=== PATIENT | female | born 1970 | race Caucasian/White ===

== ENCOUNTER → 2021-02-16 | Outpatient (CLI) | payer MEDICARE, OTHER ==
--- NOTE | 2021-02-17 08:22 | MM ---
Reason for exam: clinical finding. Last mammogram was performed 3 years ago. History: Patient is nulliparous. Took hormonal contraceptives for 6 months. Physical Findings: Nurse Summary: entire right and left breast thickening, hardened, firm greater in the right breast, scabbed areas around right areola, patient states x 1 year (nurse TM). MG 3D Diag Mammo W/Cad RODERICK Bilateral CC and MLO view(s) were taken. Prior study comparison: February 13, 2018, mammogram, performed at [facility]. October 11, 2010, mammogram, performed at [facility]. Right diffuse pleomorphic calcifications. Right breast with skin thickening and distortion. Left pleomorphic calcifications upper outer quadrant. Left breast skin thickening. Findings are consistent with bilateral malignancy. These results were verbally communicated with the patient and result sheet given to the patient on 02/16/21. ASSESSMENT: Highly suggestive of malignancy, BI-RAD 5 RECOMMENDATION: Surgical consultation, stereotactic core biopsy, and localization and excision of both breasts. Manage patient on a clinical basis. Called Dr. Molina's office with mammographic findings and has scheduled an appointment for the patient for 02/17/21 at 4:[address] Hogan. PRELIMINARY REPORT CALLED AND FAXED TO DR. HOGAN ON 02/17/21.
== END | disposition home or self-care (01) ==
LOC: RADMAMWWP 14:52
PROVIDERS: ATTEND Family Medicine
DX: R92.1 Mammographic calcification found on diagnostic imaging of breast (principal)
CPT/HCPCS: 77066; G0279; 77062

== ENCOUNTER → 2021-02-17 | Outpatient (CLI) | payer MEDICARE, OTHER ==
[2021-02-17 16:42] VITALS: BP 122/84; PULSE 84; RESP 18; TEMP 97.9
--- NOTE | 2021-02-17 16:49 | P.GSHP ---
History of Present Illness H&P Date: 02/17/21 Chief Complaint: abnormal bilateral mammograms Elizabeth is a 50 year old white female seen in consultation for Dr. Molina regarding bilateral abnormal mammogram. She had bilateral mammogram performed on 10190531. This revealed bilateral pleomorphic calcifications for which biopsy is recommended. She states she feels heavyness in her breast. She does not feel any pain or masses she is concerned about. [facility] prior to this [facility] They recommended a 3D image at [facility], but it was not done. She had never had any breast biopsies in the past. She has no history of any recent trauma or infection in her breast. The patient has muscular dystrophy and is wheelchair dependent. She is able to get up in transfer but is not unable to walk. CAffiene: 20 ounces per day Nicotine: Negative Chocolate: Several times a week Family history: materanl aunt: lymph nodes in her left groin Hormonal History: menarche: 12 G0 BCP: 1 year as a teen to regulate periods menopause: starting, LMP November 2020 hormones: none Surgical History: bilateral cataract surgery nerve biopsy right ankle Medical History: Muscular dystrophy Dx. at 25 epilepsy seizures/ last one April 2020 Social History: nicotine: none alcohol:none drugs: none - Constitutional Constitutional: Denies chills, Denies fever - EENT Eyes: bilateral as per HPI Ears: bilateral: tinnitus Ears, nose, mouth and throat: Denies headache, Denies sore throat - Breasts Breasts: bilateral: as per HPI - Cardiovascular Cardiovascular: Denies chest pain, Denies shortness of breath - Respiratory Respiratory: Denies cough, Denies 7 - Gastrointestinal Gastrointestinal: Denies abdominal pain, Denies diarrhea, Denies nausea, Denies vomiting - Genitourinary (Female) Genitourinary: Denies dysuria, Denies hematuria - Menstruation Menstruation: Reports cycle variable - Musculoskeletal Musculoskeletal: Reports as per HPI - Integumentary Comment: atopic dermatitis Integumentary: Denies pruritus, Denies rash - Neurological Neurological: Reports as per HPI - Psychiatric Psychiatric: Denies anxiety, Denies depression - Endocrine Endocrine: Reports weight change, Denies fatigue - Hematologic/Lymphatic Comment: none - Allergic/Immunologic Allergic/Immunologic: Reports as per HPI Medications and Allergies Home Medications Medication Instructions Recorded Confirmed Type Cholecalciferol (Vitamin D3) 125 mcg PO DAILY 10/21/21 10/21/21 History [Vitamin D3 (125 MCG = 5,000 IU)] Ferrous Sulfate [Feosol] 325 mg PO DAILY 02/17/21 02/17/21 History Furosemide [Lasix] 20 mg PO DAILY 02/17/21 02/17/21 History Ibuprofen [Motrin] 800 mg PO Q8H 02/17/21 02/17/21 History levETIRAcetam [Keppra] 250 mg PO DAILY 02/17/21 02/17/21 History polyethylene glycoL 3350 [Miralax] 17 gm PO DAILY 02/17/21 02/17/21 History Allergies Allergy/AdvReac Type Severity Reaction Status Date / Time carbamazepine [From Tegretol] AdvReac Rash/Hives Unverified 02/17/21 16:38 Surgical - Exam - General no distress - ENT no hearing loss - Neck trachea midline - Respiratory normal expansion - Cardiovascular Rhythm: regular Heart Sounds: normal: S1, S2 - Abdomen Abdomen: soft - Integumentary bilateral ankle edema - Musculoskeletal wheel chair dependant - Psychiatric oriented to time, oriented to person, oriented to place, speech is normal, memory intact Breast Exam: Patient is examined while sitting in her wheelchair; this causes exam to be limited BRA: 44D inspection: Right nipple is inverted, thickening of the skin near the nipple areolar complex Palpation: Right breast: Multi-positional exam thickening of the breast tissue posterior to the nipple areolar complex and extending up into the 12:00 and upper outer quadrant of the breast Right axilla: No adenopathy of concern Left breast: No discrete dominant masses or nodules of concern appreciated Left axilla: No adenopathy of concern Results Mammogram reviewed with Dr. Alexandra Assessment and Plan Assessment: Impression: 1. Bilateral pleomorphic calcifications with nodularity noted; recommendation was for bilateral stereotactic core biopsy localization and excision of the areas of concern After review of the radiographs I would recommend bilateral ultrasound for possible ultrasound-guided core biopsy Plan: 1. Bilateral breast ultrasound 2. Bilateral breast biopsy possible ultrasound 3. Follow-up after core biopsy The risk and benefits of the procedure have been discussed with the patient and her mother. Risks include but are not limited to bleeding, infection, reaction to the anesthetic. If the results were to be discordant and further biopsy may be recommended. Cc: Dr. Schulte
== END ==
LOC: WWCWWP 16:11
PROVIDERS: ATTEND Surgery
DX: R92.1 Mammographic calcification found on diagnostic imaging of breast (principal); N63.10 Unspecified lump in the right breast, unspecified quadrant; N63.20 Unspecified lump in the left breast, unspecified quadrant

== ENCOUNTER → 2021-02-28 | Day surgery (SDC) | payer MEDICARE, OTHER ==
[2021-02-28 12:05] VITALS: RESP 16
--- NOTE | 2021-02-28 12:23 | USB ---
Reason for exam: clinical finding. History: Patient is nulliparous. Took hormonal contraceptives for 6 months. US Breast BILAT Right complete breast ultrasound includes all four quadrants, the retroareolar region and axilla. Finding demonstrates a 10 x 5 x 11cm irregular, solid, hypoechoic, vascular lesion at 9-12 o'clock. Left complete breast ultrasound includes all four quadrants, the retroareolar region and axilla. Finding demonstrates a 1.6 x 0.9 x 1.2cm oval, cystic lesion at 12 o'clock, a 2.9 x 2.8 x 2.7cm irregular, solid, hypoechoic, vascular lesion at 1 o'clock and a 1.7 x 0.9 x 1.4cm oval, cystic lesion at 2 o'clock. These results were verbally communicated with the patient and result sheet given to the patient on 02/28/21. ASSESSMENT: Highly suggestive of malignancy, BI-RAD 5 RECOMMENDATION: Ultrasound core biopsy of both breasts.
[2021-02-28 14:35] VITALS: BP 112/68; PULSE 71; TEMP 98
--- NOTE | 2021-02-28 14:46 | USB ---
EXAMINATION TYPE: US biopsy breast VAD RT, MG diagnostic mammo BI wo CAD DATE OF EXAM: 02/28/2021 CLINICAL HISTORY: R92.8 ABNORMAL MAMMOGRAM. TECHNIQUE: Ultrasound guided core biopsy of bilateral breast. COMPARISON: Breast ultrasound 02/28/2021 FINDINGS: The procedure of ultrasound guided core biopsy was explained to the patient. Benefits, alt ernatives, and risks were discussed. An informed consent was then obtained. The patient remained in her chair for imaging and for the procedure. The overlying skin of the right breast upper outer quadrant mass was prepped and draped in usual sterile fashion. Lidocaine was used as anesthetic into the skin and subcutaneous tissue up to area of concern in the right breast. Under ultrasound guidance, a 12-gauge vacuum assisted biopsy gun device was used to obtain 2 core toribio ples. Following this, a biopsy clip was left in lesion. Using similar technique the breast mass in the upper outer left breast was sampled. Single core biops y obtained with a 12-gauge needle following sterile prep and drape, lidocaine for local anesthesia. C lip was deployed using ultrasound guidance to zaid the position of the biopsy. Core specimens were oneil bmitted to pathology. Bilateral single cc views of the breasts were obtained, digital subtraction mammogram this finding cl ips at the site of biopsy overlying patient's abnormalities within the mammograms. The patient tolerated the procedure well without any immediate complication. The patient was kept in the radiology department for short stay after the procedure and then discharged home in stable condi tion. IMPRESSION: Successful, uncomplicated ultrasound guided core biopsy of bilateral breast masses full p athology results to follow.
--- NOTE | 2021-02-28 14:48 | USB ---
EXAMINATION TYPE: US biopsy breast VAD LT DATE OF EXAM: 02/28/2021 CLINICAL HISTORY: R92.8 Abnormal mammogram. TECHNIQUE: Ultrasound guided core biopsy of breast. COMPARISON: NONE FINDINGS: The procedure of ultrasound guided core biopsy was explained to the patient. Benefits, alt ernatives, and risks were discussed. An informed consent was then obtained. See dictated report of ultrasound core biopsy right breast same date.
== END ==
LOC: RADUSWWP 10:59 → EDSTATUS 11:00
PROVIDERS: ATTEND Surgery
DX: C50.911 Malignant neoplasm of unspecified site of right female breast (principal); C50.912 Malignant neoplasm of unspecified site of left female breast; Z17.0 Estrogen receptor positive status [ER+]; Z88.8 Allergy status to other drugs, medicaments and biological substances
CPT/HCPCS: 88305; 88342; 88341; 77066; 19083 ×2; 76641; A4648; J2001

== ENCOUNTER → 2021-03-11 | Outpatient (CLI) | payer MEDICARE, OTHER ==
[2021-03-11 16:08] VITALS: BP 118/78; PULSE 78; RESP 16; TEMP 98.5
--- NOTE | 2021-03-11 16:37 | P.PN ---
Subjective Progress Note Date: 03/11/21 Elizabeth is a 50 year old white female seen in consultation for Dr. Molina regarding bilateral abnormal mammogram. She had bilateral mammogram performed on 10190531. This revealed bilateral pleomorphic calcifications for which biopsy was recommended. She states she feels heavyness in her breast. She did not feel any pain or masses she was concerned about. Her last mammogram prior to this was prior to [facility]. They recommended a 3D image at [facility], but it was not done. She had never had any breast biopsies in the past. She has no history of any recent trauma or infection in her breast. The patient has muscular dystrophy and is wheelchair dependent. She is able to get up in transfer but is not unable to walk. She underwent a bilateral ultrasound-guided core biopsy on . 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 Left breast ultrasound core biopsy revealed invasive ductal carcinoma grade 1. The tumors were ER positive [place] positive HER-2/karen negative rate 1 The patient tolerated the biopsies without difficulty. Biopsy sites clean and dry The right breast cancer is staged as IIIB, the left breast cancer is staged as 1B. Right breast cancer T4 N0 M0 G1 HER-2 negative ER positive. Positive Left breast cancer T2 N0 M0 21 HER-2 negative ER positive. Positive At this time the patient will have evaluation from medical oncology prior to any surgical treatment. We recommend metastatic workup first either by PET/CT or computed tomography scan chest abdomen and pelvis and bone scan Presentation of case at tumor board Primary medical oncology Appointment Rebeka with social work Genetic testing Follow-up care in 4 weeks CC: Dr. Zaria Hill Objective - Vital Signs Vital signs: Vital Signs Temp 98.5 F 03/11/21 16:02 Pulse 78 03/11/21 16:02 Resp 16 03/11/21 16:02 BP 118/78 03/11/21 16:02 Pulse Ox Intake & Output 03/10/21 03/11/21 03/11/21 18:59 06:59 18:59 Weight 104.326 kg
== END ==
LOC: WWCWWP 15:55
PROVIDERS: ATTEND Surgery
DX: C50.912 Malignant neoplasm of unspecified site of left female breast (principal); C50.911 Malignant neoplasm of unspecified site of right female breast; Z88.8 Allergy status to other drugs, medicaments and biological substances

== ENCOUNTER → 2021-03-25 | Outpatient (CLI) | payer MEDICARE, OTHER ==
--- NOTE | 2021-03-26 22:49 | PE ---
EXAMINATION TYPE: PET CT fusion skull to thigh DATE OF EXAM: 03/25/2021 COMPARISON: Bilateral breast ultrasound February 28, 2021 and outside mammogram February 16, 2021 HISTORY: Bilateral breast invades ductal carcinoma on biopsy February 28, 2021. TECHNIQUE: Following the intravenous administration of 13.12 mCi of F-18 FDG, whole body images are performed from the skull base to the midthigh. Images are reviewed on the computer in the coronal, a xial, and sagittal planes. Reconstructed rotating images are created on independent workstation and reviewed on the computer. A localization and attenuation correction CT is performed in conjunction with the PET scan. Blood glucose level equals 92 SCAN: Initial Scan FINDINGS: SKULL BASE AND NECK: No suspicious abnormal hypermetabolic uptake. CHEST, MEDIASTINUM, AND HILAR REGION: Corresponding to ultrasound there is heterogeneous tissue with multifocal areas of hypermetabolic masses over at least 8 cm length distribution. Biopsy clip noted a xial image 101. Max SUV is 11.09. There is abnormal skin thickening with mild hypermetabolic uptake c orresponding to mammogram. No abnormal right axillary adenopathy. There is heterogeneously dense tissue in the left breast with abnormal hypermetabolic uptake along th e lateral aspect over roughly 5-6 cm length axial images 120 through 135. Left breast is not entirely included in the [id number]. Max SUV is 8.32. Biopsy clip anteriorly axial image 129 noted. There are slightly prominent but subcentimeter left axillary lymph nodes, roughly 4 lymph nodes are seen wi th abnormal hypermetabolic uptake, max SUV is 5.77 on axial image 84. There are scattered suspicious pulmonary nodules. For reference there is 9 mm pulmonary nodule in the right middle lobe axial image 99. Mild hypermetabolic uptake, max SUV is 3.41. Approximately 10-15 s cattered small subcentimeter nodules are present. ABDOMEN AND PELVIS: Normal excretion is seen. Mild nonspecific bowel uptake particularly at level of sigmoid colon. There is anteverted uterus projecting to right of midline. Central hypermetabolic upta ke could reflect product of normal menses however if patient is postmenopausal further investigation of the endometrium would be advised. No additional areas of abnormal hypermetabolic uptake. OSSEOUS STRUCTURES: Subtle hypermetabolic lucent lesion posterior osseous glenoid right shoulder axia l image 58, max SUV is 5.89. Additional tiny hypermetabolic focus left upper cervical spine axial lizeth ge 42. OTHER CT: Facet arthropathy in the lower lumbar spine. Scattered bilateral pelvic phleboliths. IMPRESSION: Confirmation of known bilateral breast malignancy. Larger and dermal involvement in the r ight breast is present. There is abnormal left axillary adenopathy. There is hematogenous pulmonary m etastatic disease noted. Cannot exclude early osseous metastatic disease. Attention to uterus as deta iled above.
== END | disposition home or self-care (01) ==
LOC: RADPETMAIN 17:59
PROVIDERS: ATTEND Surgery
DX: C50.811 Malignant neoplasm of overlapping sites of right female breast (principal); C50.812 Malignant neoplasm of overlapping sites of left female breast
CPT/HCPCS: 78815; A9552

== ENCOUNTER → 2021-09-30 | Outpatient (CLI) | payer MEDICARE, OTHER ==
--- NOTE | 2021-10-04 20:30 | PE ---
EXAMINATION TYPE: PET CT fusion skull to thigh DATE OF EXAM: 09/30/2021 CLINICAL HISTORY: 51-year-old female C50.111 with restaging for left breast cancer. Patient with chem otherapy. Diagnosed February 2021. TECHNIQUE: Following the intravenous administration of 11.53 mCi of F-18 FDG, whole body images are performed from the skull base to the midthigh. Images are reviewed on the computer in the coronal, axial, and sagittal planes. Reconstructed rotating images are created on independent workstation and reviewed on the computer. A localization and attenuation correction CT is performed in conjunction with the PET scan. Glucose level: 99 mg/dL Injection site: Right wrist COMPARISON: 03/25/2021 FINDINGS: PET: Numerous scattered small foci of increased uptake within the neck, base of the neck, supraclavicular regions, axilla, and superior mediastinum. Many of these areas of increased uptake correspond to fat density on CT suggesting brown fat (max SUV 5.5). Other foci localized to muscles and tendons, for ex ample, the bilateral subscapularis (max SUV 6.2). No suspicious mass or enlarging lymphadenopathy to account for these PET findings. There is interval improvement but with some residual skin thickening of the right breast (max SUV 2.9 ). Less bulky configuration to the bilateral breast tissue and decreased uptake, now only mild uptake (M ax SUV 2.6 on the right and 2.1 on the left). Foci of increased uptake which previously localized to small left axillary lymph nodes has resolved. A few punctate pulmonary nodules remain, improved from 03/25/2021. For example, the anterior right mi dlung nodule currently measures 5 mm versus 9 mm, previously and no longer shows any focal uptake. Th e previous 7 mm anterior left midlung nodule only shows a tiny groundglass focus now and no uptake. F indings compatible with satisfactory metabolic response. Average liver SUV 2.9. Variable mild to moderate colon uptake likely physiologic. Uptake at the right wrist likely at the injection site. Otherwise, physiologic FDG uptake within the abdomen and pelvis. Scattered foci of sclerosis within the thoracic and lumbar spine as well as the posterior right third rib are similar to slightly increased. These either continue to show no hypermetabolism or the previ ous mild hypermetabolism has resolved. ATTENUATION CORRECTION CT: Paranasal sinuses and mastoid air cells appear clear. No cervical lymphadenopathy. Orotracheal, is cl ear. Punctate calcifications bilateral palatine tonsils suggesting sequela of prior infection. Heart is normal in size. Aorta normal caliber with a bovine configuration to the aortic arch and noel tional direct takeoff of the left vertebral artery directly from the aortic arch. No thoracic lymphad enopathy. COPD with mild emphysema. Mild dependent atelectasis. No dilated small bowel, free fluid, or free air. No mesenteric or retroperitoneal lymphadenopathy. Mi ld stool burden. Sigmoid diverticulosis. No pericolonic inflammatory change. No dilated small bowel, free fluid, or free air. Generalized muscle atrophy gluteal, upper thighs, and iliopsoas. Also, diffuse fatty atrophy of the p araspinal musculature. Bladder urine distended. Uterus and both ovaries are visualized. Small pelvic phleboliths. No abnorma l fluid collection in the pelvis with lymphadenopathy. Bones: Osteopenia. Degenerative changes at both glenohumeral joints at the shoulders. IMPRESSION: 1. Numerous small new foci of increased hypermetabolism along the base of the neck, axilla, and super ior mediastinum. Most of these foci correspond to areas of fat density suggesting the development of brown fat (benign). A couple foci correspond to muscle/tendon suggesting physiologic uptake (also austin ign). 2. Only minimal or mild residual uptake at both breasts compatible with treatment response. There has been complete metabolic response at the left axillary nodes and the scattered small pulmonary nodule s. Some residual tiny nodules remain on CT but they no longer show any uptake. 3. Scattered sclerotic foci within the thoracic and lumbar spine as well as the posterior right third rib either continue to show no uptake or resolution of previous mild uptake. There is also slight in crease in sclerosis at these areas and we suspect healing response at the sites of previous osseous m etastasis.
== END | disposition home or self-care (01) ==
LOC: RADPETMAIN 13:13
PROVIDERS: ATTEND Internal Medicine Hematology & Oncology
DX: C50.111 Malignant neoplasm of central portion of right female breast (principal)
CPT/HCPCS: 78815; A9552

== ENCOUNTER → 2021-10-21 | Outpatient (CLI) | payer MEDICARE, OTHER ==
[2021-10-21 16:34] VITALS: BP 128/80; PULSE 80; RESP 16; TEMP 98.4
--- NOTE | 2021-10-21 17:08 | P.PN ---
Subjective Progress Note Date: 10/21/21 Principal diagnosis: bilateral breast cancer Elizabeth is a 50 year old white female seen in consultation for Dr. Molina regarding bilateral abnormal mammogram. She had bilateral mammogram performed on [id number]. This revealed bilateral pleomorphic calcifications for which biopsy is recommended. She states she feels heavyness in her breast. She does not feel any pain or masses she is concerned about. [facility] to this [facility] They recommended a 3D image at [facility], but it was not done. She had never had any breast biopsies in the past. She has no history of any recent trauma or infection in her breast. The patient has muscular dystrophy and is wheelchair dependent. She is able to get up in transfer but is not unable to walk. 10-21-21 She had bilateral ultrasound-guided core biopsies of the breast. Right breast core biopsy was done on which revealed invasive ductal carcinoma grade 1 with focal intermediate grade DCIS. Left breast core biopsy was done on the same date which also revealed invasive ductal carcinoma grade 1, ER/SD positive HER-2/karen negative. The patient underwent neoadjuvant treatment with a good response. She received Ibrance/Femora and Zoladex. She has been off the Ibrance for two weeks. The patient had a PET scan performed and 6321. This revealed only minimal or mild residual uptake at both breasts compatible with treatment response. There didn't some complete metabolic was passed at the left axillary nodes and scattered small pulmonary nodules. Some tiny nodules remain on the CT but no longer showed any uptake. Scattered sclerotic foci within the thoracic and lumbar spine as well as the posterior right third rib continue to show no uptake resolution of previous mild uptake. There was also slight increase in sclerosis at these areas suspecting healing as sites of possible previous metastases. Numerous smaller foci of increased hypermetabolism along the base of the neck axilla and superior mediastinum. Most of these foci corresponded to areas of fat density suggesting the development of benign brown fat. At this time the patient is ready to have both breast removed and SNB. CAffiene: 20 ounces per day Nicotine: Negative Chocolate: Several times a week Family history: materanl aunt: lymph nodes in her left groin Hormonal History: menarche: 12 G0 BCP: 1 year as a teen to regulate periods menopause: starting, LMP November 2020 hormones: none Surgical History: bilateral cataract surgery nerve biopsy right ankle Medical History: Muscular dystrophy Dx. at 25 epilepsy seizures/ last one April 2020 Social History: nicotine: none alcohol:none drugs: none - Constitutional Constitutional: Denies chills, Denies fever - EENT Eyes: bilateral as per HPI Ears: bilateral: tinnitus Ears, nose, mouth and throat: Denies headache, Denies sore throat - Breasts Breasts: bilateral: as per HPI - Cardiovascular Cardiovascular: Denies chest pain, Denies shortness of breath - Respiratory Respiratory: Denies cough - Gastrointestinal Gastrointestinal: Denies abdominal pain, Denies diarrhea, Denies nausea, Denies vomiting - Genitourinary (Female) Genitourinary: Denies dysuria, Denies hematuria - Menstruation Menstruation: Reports cycle variable - Musculoskeletal Musculoskeletal: Reports as per HPI - Integumentary Comment: atopic dermatitis Integumentary: Denies pruritus, Denies rash - Neurological Neurological: Reports as per HPI - Psychiatric Psychiatric: Denies anxiety, Denies depression - Endocrine Endocrine: Reports weight change, Denies fatigue - Hematologic/Lymphatic Comment: none - Allergic/Immunologic Allergic/Immunologic: Reports as per HPI Objective - Vital Signs Vital signs: Vital Signs Temp 98.4 F 10/21/21 16:31 Pulse 80 10/21/21 16:31 Resp 16 10/21/21 16:31 BP 128/80 10/21/21 16:31 Pulse Ox 98 10/21/21 16:31 FiO2 Intake & Output 10/20/21 10/21/21 10/21/21 18:59 06:59 18:59 Weight 102.058 kg - Exam BMI: 35.2 - Constitutional General appearance: Present: cooperative - EENT Eyes: Present: EOMI ENT: Present: hearing grossly normal - Neck Neck: Present: normal ROM - Respiratory Respiratory: bilateral: CTA - Cardiovascular Heart sounds: normal: S1, S2 - Gastrointestinal General gastrointestinal: Present: soft - Musculoskeletal Musculoskeletal Comment(s): uses wheel chair; muscular dystrophy - Psychiatric Psychiatric: Present: A&O x's 3, appropriate affect, intact judgment & insight - Additional findings Additional findings: Breast Exam: BRA: does not wear one/ 40C/D inspection: Nipple retraction on the right, bilateral grade 3 ptosis Palpation: Right breast: Fullness behind the right nipple areolar complex, no other discrete masses Right axilla: No adenopathy of concern Left breast: No dominant masses or nodules of concern Left axilla: No adenopathy of concern Assessment and Plan Assessment: Impression: Bilateral breast cancer with good response withIbrance, Femora, Zolodex Muscular dystrophy Epilepsy Plan: Medical clearance from Dr. Parks Bilateral mastectomy with bilateral sentinel node biopsy clearance from Dr. Dueñas; neurology We have discussed reconstruction at this time the patient is declining. Cc: Dr. Enciso
== END ==
LOC: WWCWWP 16:18
PROVIDERS: ATTEND Surgery
DX: C50.911 Malignant neoplasm of unspecified site of right female breast (principal); C50.912 Malignant neoplasm of unspecified site of left female breast; G71.00 Muscular dystrophy, unspecified; G40.909 Epilepsy, unspecified, not intractable, without status epilepticus; Z17.0 Estrogen receptor positive status [ER+]; Z88.8 Allergy status to other drugs, medicaments and biological substances

== ENCOUNTER 2021-12-27 07:18 | Day surgery (SDC) | payer MEDICARE, OTHER ==
[2021-12-26 12:41] VITALS: BMI 35.2
[~2021-12-27 07:18] MED LIST: DEXAMETHASONE SOD PHOSPHATE 4 MG/ML 1 ML VIAL IV ONE; HEPARIN SODIUM,PORCINE/PF 5,000 UNIT/0.5 ML SYRINGE SQ PRN; HYDROmorphone 0.5 MG/0.5 ML SYRINGE IVP PRN; MIDAZOLAM 2 MG/2 ML VIAL IV PRN; ONDANSETRON 4 MG/2 ML VIAL IVP ONE; Pre Op ABX Message 1 EACH MISC MISCELLANE ONE; SCOPOLAMINE 1 MG/72 HR PATCH TRANSDERM ONE
[2021-12-27] MEDS: LACTATED RINGERS 1,000 ML IV SCH ×2 (07:40→23:36)
[2021-12-27 08:15] LABS: Basophils # (A) 0.1 k/uL (0-0.2); Basophils % (A) 2 %; Eosinophils # (A) 0.1 k/uL (0-0.7); Eosinophils % (A) 2 %; HCT 37.4 % (34.0-46.0); HGB 12.5 gm/dL (11.4-16.0); Lymphocytes # (A) 1.5 k/uL (1.0-4.8); Lymphocytes % (A) 32 %; MCH 35.9 pg (25.0-35.0); MCHC 33.4 g/dL (31.0-37.0); MCV 107.3 fL (80.0-100.0); Macrocytosis Marked; Mean Platelet Volume 7.2; Monocytes # (A) 0.2 k/uL (0-1.0); Monocytes % (A) 4 %; Neutrophils # (A) 2.6 k/uL (1.3-7.7); Neutrophils % (A) 57 %; Platelet Count 323 k/uL (150-450); RBC 3.48 m/uL (3.80-5.40); RDW 15.6 % (11.5-15.5); WBC 4.7 k/uL (3.8-10.6)
--- NOTE | 2021-12-27 08:23 | P.PN ---
Progress Note - Text Progress Note Date: 12/27/21 Case was discussed with Dr. Cruz. The patient has been [place] [address] was 3.4. He did not feel that this should prevent us from proceeding with the operative procedure.
[2021-12-27] MEDS ORDERED: MIDAZOLAM 2 MG/2 ML VIAL IVP ONE (08:32)
--- NOTE | 2021-12-27 08:32 | P.NAPBC ---
NAPBC Queries - NAPBC Queries Was patient's case review presented at [facility] tumor board? If no, comment.: Yes Was patient's pathology reviewed at [facility]? If no, comment.: Yes Was breast conservation surgery offered? If no, comment.: No Was sentinel node biopsy offered? If no, comment.: Yes Was diagnosis confirmed by percutaneous core biopsy? If no, comment.: Yes Is patient mastectomy patient?: Yes Was a preop referral to reconstructive surgeon offered?: No Clinical Stage: PET February 2021 initial mets, resolved with treatment on repeat PET scan 2021 Femora/Ibrance/zolvadex Stage 4 disease; patient with muscular dystrophy and after representation at tumor board recommended for bilateral mastectomy and SNB secondary for local control and secondary to excellant response of neoadjuvant therapy noted on PET scan.
[2021-12-27] MEDS ORDERED: HYDROmorphone (PF) 1 MG/ML ONE (08:43)
[2021-12-27] MEDS ORDERED: PROPOFOL 10 MG/ML 20 ML VIAL IV ONE (08:43)
[2021-12-27] MEDS ORDERED: LIDOCAINE 4% LTA KIT (4 ML) TOPICAL ONE (08:43)
[2021-12-27] MEDS ORDERED: fentaNYL (PF) 50 MCG/ML 2 ML AMP ONE (08:43)
[2021-12-27] MEDS ORDERED: LIDOCAINE 2% INJ 20 MG/ML (2 ML VIAL) ONE (08:43)
[2021-12-27] MEDS ORDERED: ePHEDrine 50 MG/ML 1 ML VIAL ONE (08:43)
[2021-12-27] MEDS ORDERED: SODIUM CHLORIDE 0.9% 50 ML with ceFAZolin 2,000 MG IV ONE ×2 (08:48)
--- NOTE | 2021-12-27 09:01 | NM ---
EXAMINATION TYPE: NM sentinel node injection DATE OF EXAM: 12/27/2021 COMPARISON: No direct comparisons. HISTORY: Left breast cancer. TECHNIQUE AND FINDINGS: The procedure of sentinel lymph node injection was explained to the patient. The benefits, alternatives, and risks were discussed. An informed consent was then obtained. Overlying skin is cleaned with sterile alcohol. Following this, 481 RT Breast & 465 LT Breast uCi Tc 99m Tilmanocept was injected in the upper outer aspect of both nipples intradermally. The patient tolerated the procedure well without any immediate complication. The patient was kept in the radiology department for short stay after the procedure and then taken to surgery for surgical p rocedure what is presumed intraoperative gamma probe will be used for sentinel lymph node detection. IMPRESSION: Bilateral breast radiotracer injection for sentinel node localization as above.
[2021-12-27] MEDS ORDERED: METHYLENE BLUE 10 MG/ML (10 ML VIAL) INJ ONE (09:09)
[2021-12-27] MEDS ORDERED: LACTATED RINGERS 1,000 ML IV ONE (11:00)
[2021-12-27] MEDS ORDERED: ONDANSETRON 4 MG/2 ML VIAL IVP PRN (12:37)
[2021-12-27] MEDS ORDERED: NALOXONE 0.4 MG/ML 1 ML VIAL IV PRN (12:37)
[2021-12-27] MEDS ORDERED: HYDROmorphone 1 MG/ML 1 ML SYRINGE IVP PRN (12:37)
[2021-12-27] MEDS ORDERED: HYDROcodone/APAP 5-325MG 1 EACH TAB PO PRN (12:37)
--- NOTE | 2021-12-27 12:37 | P.OP ---
Date of Procedure: 12/27/21 Preoperative Diagnosis: Bilateral invasive ductal breast cancer, status post neoadjuvant Femara/Ibrance/Zolvadex Postoperative Diagnosis: Same Procedure(s) Performed: Bilateral mastectomy, left sentinel node biopsy, right axillary mapping, attempted right sentinel node biopsy, removal of axillary tissue Anesthesia: WALLACE Surgeon: Paola Hogan Estimated Blood Loss (ml): 50 IV fluids (ml): 800 Pathology: other (Bilateral breast, left axillary lymph node, right axillary tissue) Condition: stable Disposition: floor Indications for Procedure: Bilateral invasive ductal breast cancer Operative Findings: Very dense breasts, both axilla fibrotic Description of Procedure: The patient is a 51-year-old white female with muscular dystrophy who was seen in the preoperative area and bilateral periareolar injections of radioactive substance were performed by radiology. She was then brought to the operative suite. Following induction of anesthesia using the neoprobe radioactivity was noted to have traveled to the left axilla but not the right axilla. Therefore diluted methylene blue was injected in the periareolar regon on the right. Approximately 3 mL were injected. The breast was massaged for 3 minutes. Both breasts and axilla were then prepped and draped in a sterile fashion. The left breast was approached initially. Superior and inferior skin flaps were developed. The skin was thickened and the tissue was very fibrotic. Dissection was carried down to the chest wall and the breast was taken from medial to lateral off the pectoralis muscle being careful to maintain hemostasis using the electrocautery device as well as the Harmonic scalpel. At the level of the axilla the breast was resected. Using the neoprobe an area of radioactivity was identified and a lymph node was removed. The 10 second count was 1043. The background 10 second count was 20. The tissues in the axilla were fibrotic but no other axillary tissue of concern was palpated. Following this the wound was well irrigated. 2 ALEXIS drains were placed. After we were assured that hemostasis was attained Surgicel in powder form was placed. The deep tissues were closed using 3-0 Vicryl suture. The skin was closed using 4-0 Monocryl. The drains were secured using nylon suture. The area of the right breast was approached. Superior and inferior skin flaps were developed. The skin was thickened and the breast tissue was very fibrotic. Dissection was then carried from medial to lateral off the chest wall. Several perforating vessels were identified and these were suture ligated. Hemostasis was attained using electrocautery as well as the Harmonic scalpel. The breast was dissected to the axillary area and was removed. Interrogation of the axilla did not reveal any radioactivity. The axillary tissue was very fibrotic and there were no blue lymph nodes. Lower axillary tissue was removed. No definite lymph node could be palpated. After we were assured that hemostasis was attained 2 ALEXIS drains were placed. These were secured using nylon suture. Surgicel in powder form was placed. The deep tissues were closed using 3-0 Vicryl suture. This was followed by closure of the skin with 4-0 Monocryl. Steri-Strips were applied to each side. The patient tolerated the procedure in stable condition. All instrument and sponge counts were correct at the end of the case.
[2021-12-27 13:24] VITALS: RESP 16
[2021-12-27] MEDS: HEPARIN SODIUM,PORCINE/PF 5,000 UNIT/0.5 ML SYRINGE SQ SCH ×2 (19:14→23:54)
[2021-12-27] MEDS: DEXTROSE 5%-0.45% NACL 1,000 ML IV SCH ×2 (19:14→20:10)
--- NOTE | 2021-12-27 23:12 | P.CONS ---
History of Present Illness - Reason for Consult Consult date: 12/27/21 - History of Present Illness The patient is a 51-year-old female with a PMH of muscular dystroph, seizure disorder, and invasive bilateral ductal breast cancer who was admitted for planned bilateral mastectomy. The patient underwent the procedure earlier today and was seen postoperatively. She reported good control her pain at the time of interview, rated at a 2 out of 10 at rest. Denied experiencing short of breath, nausea, vomiting, abdominal pain, diarrhea. The patient did request a dose of MiraLAX which she states she takes daily but that she missed her dose from yesterday. Review of systems: Pertinent positives and negatives as discussed in HPI, a complete review of systems was performed and all other systems are negative. Physical examination: General: non toxic, no distress, appears at stated age, obese Derm: no unusual rashes/lesions, warm Head: atraumatic, normocephalic, symmetric Eyes: EOMI, no lid lag, anicteric sclera, pupils equal round reactive to light ENT: Nose and ears atraumatic Neck: No cervical lymphadenopathy, trachea midline, supple Mouth: no lip lesion, mucus membranes moist Cardiovascular: S1S2 reg, no murmur, positive dorsalis pedis pulse bilateral, no edema Lungs: CTA bilateral, no rhonchi, no rales, no accessory muscle use Abdominal: soft, nontender to palpation, no guarding Ext: muscle strength 3 out of 5 in all 4 extremities grossly, no gross muscle atrophy, no contractures, Neuro: CN II-XI grossly intact, no gross focal neuro deficits Psych: Alert, oriented, appropriate affect Assessment/plan Chronic conditions: Seizure disorder, muscular dystrophy -Continue with home medications -Patient requested to see a physical therapist as she is concerned about her muscular dystrophy. Patient reports at baseline she is only able to stand, which has been a gradual slight decline in her overall functional status. -Patient also requested to see the geriatric social work professor and case management social worker to help her procure more assistance at home for her ADLs -Patient also requested to see a past Status post bilateral mastectomy -Defer management including pain control and DVT prophylaxis to the primary surgery service We appreciate this opportunity to be involved in this patient's care. We will follow the patient with you. For any further questions, please not hesitate to contact the sound inpatient team. Past Medical History Past Medical History: Asthma, Cancer, GERD/Reflux, Musculoskeletal Disorder Additional Past Medical History / Comment(s): muscular dystrophy- weakness in arms and legs-uses power chair and julissa lift., luis daniel breast cancer with chemo (last chemo 2-3 weeks ago.) History of Any Multi-Drug Resistant Organisms: MRSA Year Discovered:: ?2013 MDRO Source:: leg Past Surgical History: Breast Surgery, Orthopedic Surgery Additional Past Surgical History / Comment(s): bilateral cataracts w/lens implants at 18yrs old., right ankle nerve biospy, Breast bx. muscle nerve biopsy, bilat mastectomy 12/27/2021 for breast cancer. stage 4 breast cancer right breast and stage one breast cancer left breast. Past Anesthesia/Blood Transfusion Reactions: No Reported Reaction, Motion Sickness Past Psychological History: No Psychological Hx Reported Smoking Status: Never smoker, Second hand smoke exposure Past Alcohol Use History: Rare Past Drug Use History: None Reported Medications and Allergies Home Medications Medication Instructions Recorded Confirmed Type Furosemide [Lasix] 20 mg PO DAILY 02/17/21 12/27/21 History Ibuprofen [Motrin] 800 mg PO Q8H 02/17/21 12/27/21 History polyethylene glycoL 3350 [Miralax] 17 gm PO DIRECTED 02/17/21 12/27/21 History Omeprazole [PriLOSEC] 20 mg PO DAILY 10/21/21 12/27/21 History Cholecalciferol [Vitamin D3 (25 50 mcg PO DAILY 12/26/21 12/27/21 History Mcg = 1000 Iu)] Ferrous Sulfate [Iron] 325 mg PO DAILY 12/26/21 12/27/21 History levETIRAcetam [Keppra] 500 mg PO Q12HR 12/26/21 12/27/21 History Allergies Allergy/AdvReac Type Severity Reaction Status Date / Time carbamazepine [From Tegretol] AdvReac Rash/Hives Verified 12/27/21 07:27 pet dander Allergy Unknown asthma Uncoded 12/27/21 07:27 symptoms Physical Exam Vitals: Vital Signs Temp Pulse Pulse Resp BP BP Pulse Ox 12/27/21 20:00 97.7 F 77 16 132/86 100 12/27/21 17:00 72 16 134/74 100 12/27/21 16:00 94 16 149/72 100 12/27/21 15:30 81 16 144/73 100 08/30/22 15:00 81 16 138/71 100 12/27/21 14:45 70 16 136/67 100 12/27/21 14:30 86 16 130/60 99 12/27/21 14:15 85 16 129/65 99 12/27/21 14:00 80 16 134/72 99 12/27/21 13:45 74 16 133/66 100 12/27/21 13:30 82 16 133/61 92 L 12/27/21 13:15 73 16 136/65 100 12/27/21 12:59 97 F L 89 18 133/67 100 12/27/21 08:43 87 14 94 L 12/27/21 07:14 97.6 F 85 16 162/81 98 Intake and Output 12/27/21 12/27/21 12/28/21 14:59 22:59 06:59 Intake Total 1850 200 Output Total 650 180 Balance 1200 20 Intake: IV 1850 200 Output: Drainage 180 Bilateral Breast 180 Urine 600 Estimated Blood Loss 50 Other: Weight 102.2 kg 102.2 kg Results CBC & Chem 7: 12/27/21 07:57 Labs: Abnormal Lab Results - Last 24 Hours (Table) 12/27/21 Range/Units 07:57 RBC 3.48 L (3.80-5.40) m/uL MCV 107.3 H (80.0-100.0) fL MCH 35.9 H (25.0-35.0) pg RDW 15.6 H (11.5-15.5) % Macrocytosis Marked A
[2021-12-27] MEDS: levETIRAcetam 500 MG TAB PO SCH (23:54)
[2021-12-28] MEDS: DEXTROSE 5%-0.45% NACL 1,000 ML IV SCH (05:58)
[2021-12-28] MEDS: HEPARIN SODIUM,PORCINE/PF 5,000 UNIT/0.5 ML SYRINGE SQ SCH (08:57)
[2021-12-28] MEDS: levETIRAcetam 500 MG TAB PO SCH (08:57)
[2021-12-28] MEDS ORDERED: PANTOPRAZOLE 40 MG TABLET PO SCH (09:00)
[2021-12-28] MEDS ORDERED: ACETAMINOPHEN TAB 325 MG TAB PO PRN (09:14)
[2021-12-28 09:47] VITALS: BP 104/64; PULSE 70; TEMP 97.5
--- NOTE | 2021-12-28 10:10 | P.PN ---
Subjective Progress Note Date: 12/28/21 Principal diagnosis: Postop day #1 bilateral mastectomy with bilateral axillary tissue biopsy Elizabeth is a 51-year-old white female status post bilateral mastectomy and axillary tissue sampling. Of significance is the fact that she has muscular dystrophy and is unable to ambulate. Last night she had some urinary retention and a Hamlin catheter was placed. She is tolerating her diet without difficulty and has minimal discomfort. Objective - Vital Signs Vital signs: Vital Signs Temp 97.5 F L 12/28/21 08:00 Pulse 70 12/28/21 08:00 Resp 16 12/28/21 02:00 BP 104/64 12/28/21 08:00 Pulse Ox 98 12/28/21 08:00 FiO2 Intake & Output 12/27/21 12/28/21 12/28/21 18:59 06:59 18:59 Intake Total 0 Output Total 650 805 Balance 1400 -805 Weight 102.2 kg 102.2 kg Intake: IV 2049 Output: Drainage 255 Bilateral Breast 180 Left Lower Breast 5 Left Upper Breast 20 Right Lower Breast 0 Right Upper Breast 50 Urine 600 550 Uretheral (Hamlin) 550 Estimated Blood Loss 50 Other: Voiding Method Indwelling Catheter - Constitutional General appearance: Present: cooperative - EENT Eyes: Present: EOMI ENT: Present: hearing grossly normal - Respiratory Respiratory: bilateral: CTA - Cardiovascular Rhythm: regular Heart sounds: normal: S1, S2 - Integumentary Integumentary Comment(s): Incisions clean and dry bilateral, dressings changed ALEXIS drain output serous in nature - Psychiatric Psychiatric: Present: A&O x's 3, appropriate affect, intact judgment & insight - Labs CBC & Chem 7: 12/27/21 07:57 Assessment and Plan Assessment: Impression: Patient doing well postop day #1 bilateral mastectomy with axillary tissue sampling Urinary retention Hamlin catheter placed as per medicine Plan: From a surgical standpoint the patient is ready for discharge to care home facility if okay with medicine Awaiting CBC Hamlin catheter as managed by medicine
--- NOTE | 2021-12-28 10:14 | P.DS ---
Providers Date of admission: t Expected date of discharge: 12/28/21 Attending physician: Paola Hogan Consults: 12/27/21 12:41 Consult Physician Routine Consulting Provider: Clark Hdez Consult Reason/Comments: medical care Do you want consulting provider notified?: Yes Primary care physician: Bea [facility] Hospital Course: Elizabeth is a 51-year-old white female postop day #1 bilateral mastectomy Tissue sampling. She is doing well at this time. She is tolerating her diet without difficulty. Her ALEXIS drain output is minimal and serous in nature. Her pain is well controlled. Hamlin catheter was placed secondary to urinary retention and is being managed by medicine. CBC from today is pending. Plan - Discharge Summary Discharge Rx Participant: No New Discharge Prescriptions: No Action polyethylene glycoL 3350 [Miralax] 17 gm PO DIRECTED Ibuprofen [Motrin] 800 mg PO Q8H Cholecalciferol [Vitamin D3 (25 Mcg = 1000 Iu)] 50 mcg PO DAILY Furosemide [Lasix] 20 mg PO DAILY Omeprazole [PriLOSEC] 20 mg PO DAILY levETIRAcetam [Keppra] 500 mg PO Q12HR Ferrous Sulfate [Iron] 325 mg PO DAILY Discharge Medication List Furosemide [Lasix] 20 mg PO DAILY 02/17/21 [History] Ibuprofen [Motrin] 800 mg PO Q8H 02/17/21 [History] polyethylene glycoL 3350 [Miralax] 17 gm PO DIRECTED 02/17/21 [History] Omeprazole [PriLOSEC] 20 mg PO DAILY 10/21/21 [History] Cholecalciferol [Vitamin D3 (25 Mcg = 1000 Iu)] 50 mcg PO DAILY 12/26/21 [History] Ferrous Sulfate [Iron] 325 mg PO DAILY 12/26/21 [History] levETIRAcetam [Keppra] 500 mg PO Q12HR 12/26/21 [History] Follow up Appointment(s)/Referral(s): Paola Hogan MD [STAFF PHYSICIAN] - 1 Week Activity/Diet/Wound Care/Special Instructions: Teaching caregivers drain care, how to strip the drain, and drain and record each drain twice a day, the patient is to bring this with her at her next visit Wear binder at surgical site at all times unless showering May shower after 48 hours Discharge Disposition: TRANSFER TO SNF/ECF
[2021-12-28 11:07] LABS: Basophils # (A) 0.04 X 10*3/uL (0.00-0.10); Basophils % (A) 0.6 %; Eosinophils # (A) 0.01 X 10*3/uL (0.04-0.35); Eosinophils % (A) 0.1 %; HCT 35.4 % (37.2-46.3); HGB 11.6 g/dL (12.0-15.0); Lymphocytes % (A) 15.2 %; MCH 34.3 pg (27.0-32.0); MCHC 32.8 g/dL (32.0-37.0); MCV 104.7 fL (80.0-97.0); Mean Platelet Volume 9.4 fL (9.5-12.2); Monocytes # (A) 0.58 X 10*3/uL (0.20-1.00); NRBC Per 100 WBC 0 /100 WBCS (0.0-0.0); Neutrophils # (A) 5.45 X 10*3/uL (1.80-7.70); Neutrophils % (A) 75.1 %; Platelet Count 309 X 10*3/uL (140-440); RBC 3.38 X 10*6/uL (4.10-5.20); RDW 14.6 % (11.5-14.5); WBC 7.25 X 10*3/uL (4.50-10.00)
--- NOTE | 2021-12-28 14:57 | P.PN ---
Subjective Progress Note Date: 12/28/21 Principal diagnosis: Bilateral Masectomy Patient seen and examined today. She is denying any new complaints her pain is controlled. She did have some urinary retention issues yesterday which for catheter was inserted. The catheter will be removed and patient will have a trial void today. Objective - Vital Signs Vital signs: Vital Signs Temp 97.5 F L 12/28/21 08:00 Pulse 70 12/28/21 08:00 Resp 16 12/28/21 02:00 BP 104/64 12/28/21 08:00 Pulse Ox 98 12/28/21 08:00 FiO2 Intake & Output 12/27/21 12/28/21 12/28/21 18:59 06:59 18:59 Intake Total 2049 Output Total 650 805 775 Balance 1400 -805 -775 Weight 102.2 kg 102.2 kg Intake: IV 2049 Output: Drainage 255 Bilateral Breast 180 Left Lower Breast 5 Left Upper Breast 20 Right Lower Breast 0 Right Upper Breast 50 Urine 600 550 775 Uretheral (Hamlin) 550 Estimated Blood Loss 50 Other: Voiding Method Indwelling Catheter - Exam Physical examination: General: non toxic, no distress, appears at stated age, obese Derm: no unusual rashes/lesions, warm Head: atraumatic, normocephalic, symmetric Eyes: EOMI, no lid lag, anicteric sclera, pupils equal round reactive to light ENT: Nose and ears atraumatic Neck: No cervical lymphadenopathy, trachea midline, supple Mouth: no lip lesion, mucus membranes moist Cardiovascular: S1S2 reg, no murmur, positive dorsalis pedis pulse bilateral, no edema Lungs: CTA bilateral, no rhonchi, no rales, no accessory muscle use Abdominal: soft, nontender to palpation, no guarding Ext: muscle strength 3 out of 5 in all 4 extremities grossly, no gross muscle atrophy, no contractures, Neuro: CN II-XI grossly intact, no gross focal neuro deficits Psych: Alert, oriented, appropriate affect - Labs CBC & Chem 7: 12/28/21 05:52 Labs: Abnormal Lab Results - Last 24 Hours (Table) 12/28/21 Range/Units 05:52 RBC 3.38 L (4.10-5.20) X 10*6/uL Hgb 11.6 L (12.0-15.0) g/dL Hct 35.4 L (37.2-46.3) % MCV 104.7 H (80.0-97.0) fL MCH 34.3 H (27.0-32.0) pg RDW 14.6 H (11.5-14.5) % MPV 9.4 L (9.5-12.2) fL Immature Gran # 0.07 H (0.00-0.04) X 10*3/uL Eosinophils # 0.01 L (0.04-0.35) X 10*3/uL Assessment and Plan (1) Malignant neoplasm of central portion of right female breast Status: Acute Code(s): C50.111 - MALIGNANT NEOPLASM OF CENTRAL PORTION OF RIG HT FEMALE BREAST SNOMED Code(s): 922034067 Plan: Assessment/plan Chronic conditions: Seizure disorder, muscular dystrophy -Continue with home medications -PTOT Urinary retention -Patient had a Hamlin catheter inserted overnight. He will be discontinued and patient will have trial void. Patient still stable to be discharged to rehab facility would recommend when necessary straight cath as needed outpatient for urinary retention symptoms Status post bilateral mastectomy -Defer management including pain control and DVT prophylaxis to the primary surgery service
== END 2021-12-28 14:19 ==
LOC: OR 07:18 → 4FBP 12:47 → 4SSUR 12:47 → OR 12-28 14:19
PROVIDERS: ATTEND Surgery
DX: D05.12 Intraductal carcinoma in situ of left breast (principal); D05.11 Intraductal carcinoma in situ of right breast; I89.8 Other specified noninfective disorders of lymphatic vessels and lymph nodes; Z20.822 Contact with and (suspected) exposure to COVID-19; G71.00 Muscular dystrophy, unspecified; G40.909 Epilepsy, unspecified, not intractable, without status epilepticus; Z88.8 Allergy status to other drugs, medicaments and biological substances; Z91.09 Other allergy status, other than to drugs and biological substances; Z79.899 Other long term (current) drug therapy; J45.909 Unspecified asthma, uncomplicated; K21.9 Gastro-esophageal reflux disease without esophagitis; Z86.14 Personal history of Methicillin resistant Staphylococcus aureus infection; Z92.21 Personal history of antineoplastic chemotherapy
CPT/HCPCS: 19303; 38525; 38900; 97162; 97166; 85025 ×2; 81025; 84703; 87635; 38792; A9520; J2250; J1100; J0690 ×3; J2405; Q9968; J3010; J1170; J2704; J1644 ×2; J2001; 88305; 88307; 88341; 88342

== ENCOUNTER → 2022-01-17 | Outpatient (CLI) | payer MEDICARE, OTHER ==
--- NOTE | 2022-01-17 14:16 | P.PN ---
Progress Note - Text Progress Note Date: 01/17/22 Elizabeth is a 51 year old female with muscular dystrophy diagnosed with bilateral invasive ductal carcinoma of the breast. This was diagnosed on . She was treated with neoadjuvant therapy with good response. PET scan revealed findings consistent with metastatic disease. Secondary to her response with neoadjuvant therapy was recommended she undergo bilateral mastectomy. Breast mastectomy invasive well-differentiated ductal carcinoma grade 1 and focally intermediate grade DCIS margins negative, greatest dimension of invasive cancer measured 5 mm greatest dimension of invasive cancer on the right breast was 3 cm tumor invaded directly into the dermis without skin ulceration No right-sided lymph nodes were evaluated One lymph node evaluated negative for cancer Right breast invasive well-differentiated ductal carcinoma and low-grade DCIS The tumor invaded into the dermis without skin ulceration No lymph nodes were evaluated on the right side Examination: Lungs: Clear Heart: Regular rate and rhythm Incisions clean and dry bilateral Last ALEXIS drain to be removed Plan: Continue follow-up with medical oncology Follow-up ultrasound of the right axilla in 4 months with physician exam at that time Cc: Dr. Cruz
[2022-01-17 14:42] VITALS: BP 116/82; PULSE 89; RESP 18; TEMP 98.5
== END ==
LOC: WWCWWP 13:55
PROVIDERS: ATTEND Surgery
DX: C50.111 Malignant neoplasm of central portion of right female breast (principal); C50.412 Malignant neoplasm of upper-outer quadrant of left female breast; Z88.8 Allergy status to other drugs, medicaments and biological substances; Z91.09 Other allergy status, other than to drugs and biological substances

== ENCOUNTER → 2022-05-19 | Outpatient (CLI) | payer MEDICARE, OTHER ==
[2022-05-19 16:44] VITALS: RESP 17
[2022-05-19 16:45] VITALS: BP 138/87; PULSE 84; TEMP 97.9
--- NOTE | 2022-05-19 17:01 | P.PN ---
Subjective Progress Note Date: 05/19/22 bilateral invasive ductal breast cancer; Cuca is a 51 year old white female who underwent bilateral ultrasound- guided core biopsies of the breast. Right breast core biopsy was done on which revealed invasive ductal carcinoma grade 1 with focal intermediate grade DCIS. Left breast core biopsy was done on the same date which also revealed invasive ductal carcinoma grade 1, ER/IL positive HER-2/karen negative. The patient underwent neoadjuvant treatment with a good response. She received Ibrance/Femora and Zoladex. The patient had a PET scan performed on 6321. This revealed only minimal or mild residual uptake at both breasts compatible with treatment response. Scattered sclerotic foci within the thoracic and lumbar spine as well as the posterior right third rib continue to show no uptake resolution of previous mild uptake. There was also slight increase in sclerosis at these areas suspecting healing as sites of possible previous metastases. Numerous smaller foci of increased hypermetabolism along the base of the neck axilla and superior mediastinum. Most of these foci corresponded to areas of fat density suggesting the development of benign brown fat. She underwent bilateral mastectomy and left sentinel node biopsy on . Right axillary tissue was removed posterior did not show any lymph nodes. Left breast: Invasive well-differentiated ductal carcinoma grade 1 and DCIS margins negative 5 mm invasive ductal carcinoma on the left Right mastectomy: Invasive well-differentiated ductal carcinoma low-grade DCIS margins negative 3 cm tumor size Left sentinel node negative She is not complaining of any new lumps masses or nodules of concern on either chest wall She is continuing to take the Femara and has had some depression associated with it CAffiene: 20 ounces per day Nicotine: Negative Chocolate: Several times a week Family history: materanl aunt: lymph nodes in her left groin Hormonal History: menarche: 12 G0 BCP: 1 year as a teen to regulate periods menopause: starting, LMP November 2020 hormones: none Surgical History: bilateral cataract surgery nerve biopsy right ankle Medical History: Muscular dystrophy Dx. at 25 epilepsy seizures/ last one April 2020 Social History: nicotine: none alcohol:none drugs: none - Constitutional Constitutional: Denies chills, Denies fever - EENT Eyes: bilateral as per HPI Ears: bilateral: tinnitus Ears, nose, mouth and throat: Denies headache, Denies sore throat - Breasts Breasts: bilateral: as per HPI - Cardiovascular Cardiovascular: Denies chest pain, Denies shortness of breath - Respiratory Respiratory: Denies cough - Gastrointestinal Gastrointestinal: Denies abdominal pain, Denies diarrhea, Denies nausea, Denies vomiting - Genitourinary (Female) Genitourinary: Denies dysuria, Denies hematuria - Menstruation Menstruation: Reports cycle variable - Musculoskeletal Musculoskeletal: Reports as per HPI - Integumentary Comment: atopic dermatitis Integumentary: Denies pruritus, Denies rash - Neurological Neurological: Reports as per HPI - Psychiatric Psychiatric: Denies anxiety, Denies depression - Endocrine Endocrine: Reports weight change, Denies fatigue - Hematologic/Lymphatic Comment: none - Allergic/Immunologic Allergic/Immunologic: Reports as per HPI Objective - Vital Signs Vital signs: Intake & Output 05/18/22 05/19/22 05/19/22 18:59 06:59 18:59 Weight 104.326 kg - Constitutional General appearance: Present: cooperative - EENT Eyes: Present: EOMI ENT: Present: hearing grossly normal - Respiratory Respiratory: bilateral: CTA - Cardiovascular Heart sounds: normal: S1, S2 - Gastrointestinal General gastrointestinal: Present: soft - Integumentary Integumentary: Present: normal turgor - Musculoskeletal Musculoskeletal Comment(s): wheel chair dependant secondary to muscular dystrophy - Psychiatric Psychiatric: Present: A&O x's 3, appropriate affect, intact judgment & insight - Additional findings Additional findings: Chest wall examination Right chest wall: Incision clean and dry no evidence of recurrent disease Right axilla: No adenopathy of concern Left chest wall: No evidence of recurrent disease Left axilla: No adenopathy of concern Assessment and Plan Assessment: Impression: Patient status post bilateral mastectomies; Plan: Continue to follow with medical oncology Follow-up here in 4 months repeat PET scan as per medical oncology CC: Dr. Enciso
== END ==
LOC: WWCWWP 15:42
PROVIDERS: ATTEND Surgery
DX: Z90.13 Acquired absence of bilateral breasts and nipples (principal); Z91.048 Other nonmedicinal substance allergy status; Z88.8 Allergy status to other drugs, medicaments and biological substances; Z80.7 Family history of other malignant neoplasms of lymphoid, hematopoietic and related tissues